=== PATIENT | male | born 1995 | race Two or more races ===

== ENCOUNTER 2020-12-28 11:19 | Emergency (ER) | payer OTHER ==
[~2020-12-28] VITALS: Ht 170.2 cm; Wt 74.0 kg
--- NOTE | 2020-12-28 11:41 | NUR ---
PATIENT WALKED BACK FROM TRIAGE WITH CHIEF C/O SOB AND CHEST PAIN THAT STARTED THIS MORNING. PATIENT DENIES FEVER, REPORTS SOME NAUSEA NO VOMITTING OR DIARRHEA. PATIENT REPORTS COUGH, DENIES ANY SICK CONTACTS. JESSICA BURNS, CALL LIGHT WITHIN REACH. Addendum: 12/28/20 at 1145 by [email or web address] PATIENT REPORTS BODY ACHES THAT STARTED TUESDAY WELL.
--- NOTE | 2020-12-28 12:06 | NUR ---
TASK RN: PT RESTING ON GURNEY. NADN. LOPEZ.
--- NOTE | 2020-12-28 12:15 | NUR ---
TASK RN: PT CHART REVIEWED AND PLACED FOR RECHECK.
[2020-12-28] MEDS ORDERED: CEFTRIAXONE 1,000 MG ONE (12:50)
[2020-12-28] MEDS ORDERED: CEFTRIAXONE 1,000 MG IM ONE (13:00)
[2020-12-28 13:02] VITALS: BP 105/62
--- NOTE | 2020-12-28 13:03 | NUR ---
Patient given discharge instructions and prescription and they have confirmed that they understand the instructions. Patient stable and ambulatory with steady gait from ED to private vehicle.
== END 2020-12-28 13:04 | disposition home or self-care (01) ==
LOC: ED 13:00
DX: J15.9 Unspecified bacterial pneumonia (principal); Z20.822 Contact with and (suspected) exposure to COVID-19; R07.9 Chest pain, unspecified; M54.5 Low back pain
CPT/HCPCS: 71045; 87635; 93005; 96372; 99285; J0696